=== PATIENT | female | born 1985 | race Two or more races ===

== ENCOUNTER → 2017-11-15 | Outpatient (CLI) | payer MEDICAID | LOC: FIMAGING 09:49 | PROVIDERS: ATTEND Student in an Organized Health Care Education/Training Program | DX: O24.112 Pre-existing type 2 diabetes mellitus, in pregnancy, second trimester (principal); Z3A.19 19 weeks gestation of pregnancy; Z98.891 History of uterine scar from previous surgery ==

== ENCOUNTER → 2017-12-18 | Outpatient (CLI) | payer MEDICAID | LOC: FIMAGING 14:27 | PROVIDERS: ATTEND Student in an Organized Health Care Education/Training Program | DX: O24.112 Pre-existing type 2 diabetes mellitus, in pregnancy, second trimester (principal); O09.292 Supervision of pregnancy with other poor reproductive or obstetric history, second trimester; Z3A.24 24 weeks gestation of pregnancy ==

== ENCOUNTER → 2018-02-28 | Outpatient (CLI) | payer MEDICAID | LOC: FIMAGING 12:15 | PROVIDERS: ATTEND Student in an Organized Health Care Education/Training Program | DX: O24.113 Pre-existing type 2 diabetes mellitus, in pregnancy, third trimester (principal); O09.293 Supervision of pregnancy with other poor reproductive or obstetric history, third trimester; Z3A.32 32 weeks gestation of pregnancy; Z79.4 Long term (current) use of insulin ==